=== PATIENT | male | born 1990 | race Caucasian/White ===

== ENCOUNTER 2023-12-31 13:16 | Emergency (ER) | payer OTHER ==
[~2023-12-31] VITALS: Ht 167.6 cm; Wt 97.5 kg
[2023-12-31 13:33] VITALS: BP_SYST 127; PULSE 84; RESP 18; TEMP 96.9; O2SAT 97
[2023-12-31] MEDS ORDERED: BENZONATATE 100 MG CAPSULE (TESSALON) PO SCH (16:15)
[2023-12-31] MEDS ORDERED: KETOROLAC TROMETHAMINE 30 MG VIAL IM ONE (16:15)
[2023-12-31] MEDS ORDERED: guaiFENesin/DEXTROMETHORPHAN 10 ML UDC PO ONE (16:15)
[2023-12-31 17:52] VITALS: BP_SYST 127; PULSE 84; RESP 18; TEMP 96.9; O2SAT 97
== END 2023-12-31 17:53 | disposition left against medical advice (07) ==
LOC: SED 13:16
DX: R05.9 Cough, unspecified (principal); R06.02 Shortness of breath; R13.10 Dysphagia, unspecified; Z53.21 Procedure and treatment not carried out due to patient leaving prior to being seen by health care provider
CPT/HCPCS: 71045